=== PATIENT | female | born 1940 | race Caucasian/White ===

== ENCOUNTER 2017-05-13 20:15 | Emergency (ER) | payer MEDICARE, OTHER ==
--- NOTE | 2017-05-13 21:12 | RAD ---
PORTABLE CHEST ONE VIEW 05/13/17 at 8:26 p.m. HISTORY: Syncope. FINDINGS: The heart size is normal. The lungs are expanded without focal areas of consolidation, pneumothorax or pleural effusions. IMPRESSION: No radiographic evidence of acute cardiopulmonary process. POS: [facility]
[2017-05-13 21:16] LABS: #Eosinphils 0.1 thou/uL (0.0-0.7); #Lymphocytes 2.2 thou/uL (1.20-3.40); #Monocytes 0.6 thou/uL (0.11-0.59); %Basophils 0.3 % (0.0-1.0); %Eosinophils 0.6 % (0.0-10.0); %Lymphocytes 19.9 % (21.0-51.0); %Monocytes 5.4 % (0.0-10.0); Hematocrit 39.3 % (36.0-47.0); Red Blood Cell (RBC) Count 4.02 mill/uL (4.20-5.40); White Blood Cell (WBC) Count 10.8 thou/uL (4.8-10.8)
[2017-05-13 21:17] LABS: Troponin I Less than 0.010 ng/mL (< 0.028)
[2017-05-13 21:20] LABS: ALT (SGPT) 14 U/L (8-55); AST (SGOT) 22 U/L (5-34); Alkaline Phosphatase 49 U/L (40-150); Anion Gap 12 mmol/L (10-20); BUN (Urea Nitrogen) 22 mg/dL (9.8-20.1); Bilirubin, Total 0.3 mg/dL (0.2-1.2); CK (CPK) 72 U/L (29-168); Calc. Creatinine Clearance 0 mL/min (70-130); Calcium 10.1 mg/dL (7.8-10.44); Carbon Dioxide 26 mmol/L (23-31); Chloride 102 mmol/L (98-107); Estimated GFR-MDRD 65
--- NOTE | 2017-05-13 22:15 | CT ---
CT OF BRAIN WITHOUT CONTRAST: 05/13/17 HISTORY: Syncope, hypertension. FINDINGS: No evidence of acute infract, hemorrhage, midline shift, or abnormal extra-axial fluid collections a re seen. The ventricular size is appropriate and the basilar cisterns are patent. The bony calvarium is intact. There is mucosal disease in the paranasal sinuses. IMPRESSION: No CT evidence of acute intracranial process. POS: [facility]
[2017-05-13 22:40] LABS: Bilirubin Negative (Negative); Blood, Urine Negative (Negative); Glucose, Urine (Dipstick) Negative (Negative); Ketone, Urine Negative (Negative); Nitrite Negative (Negative); Protein, Urine (Dipstick) Negative (Neg-Trace)
[2017-05-13 22:41] LABS: Bacteria/HPF Rare-Few HPF (None Seen); Hyaline Casts/LPF 4-6 HYALINE CAST LPF (0-3 Hyaline); Squamous Epithelial 0-3 HPF (0-3)
--- NOTE | 2017-05-14 13:56 | EKG ---
Test Reason : SYNCOPE Blood Pressure : / mmHG Vent. Rate : 072 BPM Atrial Rate : 072 BPM P-R Int : 202 ms QRS Dur : 088 ms QT Int : 412 ms P-R-T Axes : 052 009 018 degrees QTc Int : 451 ms Normal sinus rhythm Minimal voltage criteria for LVH, may be normal variant Borderline ECG Confirmed by ARMANDO GALLEGOS, JOSE ANGEL García ([id number]), editor newspaper JOHANN VELARDE ([id number]) on 05/14/2017 1:56:14 PM Referred By: CHACORTA Confirmed By:JOSE ANGEL ROBERTS MD
== END 2017-05-13 23:18 | disposition home or self-care (01) ==
LOC: ERS 20:15
DX: E86.0 Dehydration (principal); N39.0 Urinary tract infection, site not specified; E78.00 Pure hypercholesterolemia, unspecified; F41.9 Anxiety disorder, unspecified; F32.9 Major depressive disorder, single episode, unspecified; I10 Essential (primary) hypertension
CPT/HCPCS: 36415; 70450; 71010; 80053; 81003; 81015; 82550; 82553; 84484; 85025; 93005; 96360; 96361